=== PATIENT | male | born 1995 | race Caucasian/White ===

== ENCOUNTER 2017-11-05 14:34 | Emergency (ER) | payer OTHER ==
[2017-11-05 18:15] VITALS: BP 141/67
[2017-11-05] MEDS ORDERED: DEXAMETHASONE 10 MG/ML VIAL PO STA (18:27)
--- NOTE | 2017-11-05 18:29 | ED Physician Documentation ---
History of Present Illness - Stated complaint Stated Complaint: UNEASY FEELING/RT ARM TINGLING - Chief complaint Chief Complaint: General - Additonal information Additional information: hx from pt 22 male AD slept in R arm awoke with patchy tingling to FA and fingers elbow down and a sore area to distal bicep sx worse today after working out no weakness no other sx he is worried about a serious problem like a stroke Review of Systems Constitutional: denies: Fever Musculoskeletal: denies: Neck pain Neurologic: reports: Numbness. denies: Focal weakness, Head injury Endocrine: denies: Easy bruising / bleeding Immunocompromised: denies: Immunocompromised PD PAST MEDICAL HISTORY - Past Medical History Past Medical History: No - Past Surgical History Past Surgical History: No - Present Medications Home Medications: Ambulatory Orders Medication Instructions Recorded Confirmed predniSONE [Deltasone] 40 mg PO DAILY 3 Days tablet 11/05/17 - Allergies Allergies/Adverse Reactions: Allergies Allergy/AdvReac Type Severity Reaction Status Date / Time No Known Drug Allergies Allergy Verified 11/05/17 14:53 - Social History Does the pt smoke?: Yes Smoking Status: Current every day smoker Does the pt drink ETOH?: Yes ETOH Use: Beer Does the pt have substance abuse?: No - Immunizations Immunizations are current?: Yes - POLST Patient has POLST: No PD ED PE NORMAL - Vitals Vital signs reviewed: Yes - HEENT HEENT: Atraumatic, PERRL - Neck Neck: Supple, no meningeal sign - Cardiac Cardiac: RRR - Respiratory Respiratory: No respiratory distress, Clear bilaterally - Neuro Neuro: Alert and oriented X 3, frame and scrap crusher 2-12 intact, No motor deficit, No sensory deficit, Normal speech, Other (NIHSS zero - pt rn compliance finger ABD thumbs up OK wrist ext flexion bicep tricep shoulder ABD all nl, nl sensation radial median ulnar distribution, stong pulses and brisk cap refill, he reports patchy tingleing to FA in non dermatomal pattern and to all fingertips) Results - Vitals Vitals: Vital Signs - 24 hr 11/05/17 11/05/17 14:53 18:14 Temperature 36.9 C Heart Rate 98 94 Respiratory 18 14 Rate Blood Pressure 116/78 141/67 H O2 Saturation 98 98 Oxygen O2 Source Room air - Labs Labs: Laboratory Tests 11/05/17 17:06 POC Whole Bld Glucose 98 Departure - Departure Disposition: Home, Self Care Clinical Impression: Paresthesia of right upper extremity Condition: Good Instructions: ED Paraesthesias Follow-Up: RENATE Wood [Provider Group] Prescriptions: predniSONE [Deltasone] 40 mg PO DAILY 3 Days tablet Comments: It does not appear you have had a stroke. Your blood sugar was fine - you don't have diabetes The symptoms are most consistent with a peripheral nerve issue- perhaps due to sleeping on that arm. The steroids should decrease the nerve inflammation Please follow up at [facility] for a recheck Friday before the weekend unless completely better
[2017-11-05] MEDS ORDERED: CHERRY SYRUP 10 ML UDC PO ONE (18:47)
== END 2017-11-05 18:43 | disposition home or self-care (01) ==
LOC: ED 14:34
DX: R20.2 Paresthesia of skin (principal); F17.200 Nicotine dependence, unspecified, uncomplicated
CPT/HCPCS: 99283; A9270

== ENCOUNTER 2020-07-14 21:35 | Emergency (ER) | payer OTHER ==
--- NOTE | 2020-07-14 22:17 | ED Physician Documentation ---
PD HPI DYSPNEA - Stated complaint Stated Complaint: SOA - Chief complaint Chief Complaint: Resp - History obtained from History obtained from: Patient - History of Present Illness Timing - onset: How many hours ago (2) Timing - onset during: Rest Timing - details: Gradual onset, Constant Pain level max: 0 Pain level now: 0 Improved by: Rest Worsened by: Exertion Associated symptoms: Anxiety. No: Fever, Cough, Hemoptysis, Wheezing, Chest pain / discomfort, Palpitations, Diaphoresis, Bilateral edema, Unilateral edema Recently seen: Not recently seen - Additional information Additional information: c/o rapid onset dyspnea 2 hours ago while at home at rest. denies h/o similar symptoms. symptoms have been increasing and now he also has BUE/BLE numbness/tingling, lightheadedness, "feels like I'm going to pass out" (per patient). He says the symptoms initially felt anjel to previous anxiety he has experienced but he has never had his anxiety progress to these symptoms. Review of Systems Constitutional: reports: Reviewed and negative Cardiac: reports: Reviewed and negative Respiratory: reports: Dyspnea. denies: Cough, Hemoptysis, Wheezing GI: reports: Reviewed and negative Neurologic: reports: Generalized weakness, Numbness. denies: Focal weakness, Difficulty speaking, Confused, Altered mental status, Headache PD PAST MEDICAL HISTORY - Past Medical History Past Medical History: No - Past Surgical History Past Surgical History: No - Present Medications Home Medications: Ambulatory Orders Medication Instructions Recorded Confirmed predniSONE [Deltasone] 40 mg PO DAILY 3 Days tablet 11/05/17 LORazepam [Lorazepam] 0.5 - 1 mg PO BID PRN #14 tablet 07/15/20 - Allergies Allergies/Adverse Reactions: Allergies Allergy/AdvReac Type Severity Reaction Status Date / Time No Known Drug Allergies Allergy Verified 11/05/17 14:53 - Living Situation Living Arrangement: reports: At home - Social History Does the pt smoke?: Yes Smoking Status: Current every day smoker Does the pt drink ETOH?: Yes Does the pt have substance abuse?: No - Immunizations Immunizations are current?: Yes - POLST Patient has POLST: No PD ED PE NORMAL - Vitals Vital signs reviewed: Yes - General General: Alert and oriented X 3, Well developed/nourished, Other (tachypneic and noticably large Vt (deep inspirations and long expirations)) - HEENT HEENT: Moist mucous membranes - Neck Neck: No JVD - Cardiac Cardiac: No murmur - Respiratory Respiratory: No respiratory distress, Other (tachypneic, abnormal Vt (as implied by deep inspirations and rapid expirations)) - Abdomen Abdomen: Soft, Non tender - Extremities Extremities: No edema Results - Vitals Vitals: Vital Signs - 24 hr 07/14/20 07/15/20 21:41 00:48 Temperature 36.9 C Heart Rate 131 H 78 Respiratory 26 H 18 Rate Blood Pressure 155/95 H 133/78 H O2 Saturation 99 100 Oxygen O2 Source Room air - Labs Labs: Laboratory Tests 07/14/20 07/14/20 07/14/20 21:50 21:50 21:50 WBC 6.7 RBC 4.97 Hgb 15.4 Hct 42.6 MCV 85.7 MCH 31.0 MCHC 36.2 H RDW 11.3 L Plt Count 290 MPV 9.1 Neut # (Auto) 3.6 Lymph # (Auto) 2.4 [place] # (Auto) 0.6 Eos # (Auto) 0.0 Baso # (Auto) 0.0 Absolute Nucleated RBC 0.00 Nucleated RBC % 0.0 Sodium 135 Potassium 3.0 L Chloride 102 Carbon Dioxide 19 L Anion Gap 14.0 H BUN 5 L Creatinine 0.9 Estimated GFR (MDRD) 102 Glucose 129 H Calcium 8.7 TSH 1.76 - Rads (name of study) CT chest angio (PE study) Radiology: Prelim report reviewed, See rad report PD MEDICAL DECISION MAKING - ED course Complexity details: reviewed results, re-evaluated patient, considered differential, d/w patient ED course: on reevaluation after tests resulted and lorazepam IV given, patient is in NAD, normal vital signs and reports resolution of symptoms. Tests are unremarkable including CT chest angio Departure - Departure Disposition: 01 Home, Self Care Clinical Impression: Dyspnea Condition: Good Instructions: ED Hyperventilation Syndrome Prescriptions: LORazepam [Lorazepam] 0.5 - 1 mg PO BID PRN #14 tablet PRN Reason: Anxiety Discharge Date/Time: 07/15/20 00:48
[2020-07-14] MEDS ORDERED: LORazepam 2 MG/ML VIAL IVP STA (22:31)
[2020-07-14] MEDS ORDERED: IOVERSOL 320 100 ML VIAL IVP ONE (22:41)
[2020-07-14 22:42] LABS: BASOPHILS % (AUTO) 0.6 %; EOSINOPHILS % (AUTO) 0.3 %; HGB - HEMOGLOBIN 15.4 g/dL (14.0-18.0); LYMPHOCYTES # (AUTO) 2.4 10^3/uL (1.5-3.5); LYMPHOCYTES % (AUTO) 35.6 %; MEAN CORPUSCULAR HGB CONC 36.2 g/dL (32.0-36.0); MEAN CORPUSCULAR VOLUME 85.7 fL (80.0-94.0); MEAN PLATELET VOLUME 9.1 fL (7.4-11.4); MONOCYTES # (AUTO) 0.6 10^3/uL (0.0-1.0); NEUTROPHILS # (AUTO) 3.6 10^3/uL (1.5-6.6); NEUTROPHILS % (AUTO) 53.5 %; PLT - PLATELET COUNT 290 10^3/uL (130-450); RED BLOOD COUNT 4.97 10^6/uL (4.70-6.10); RED CELL DISTRIBUTION WIDTH 11.3 % (12.0-15.0); WHITE BLOOD COUNT 6.7 x10^3/uL (4.8-10.8)
[2020-07-14 22:47] LABS: CALCIUM 8.7 mg/dL (8.5-10.3); CREATININE 0.9 mg/dL (0.6-1.2)
[2020-07-15] MEDS ORDERED: IOVERSOL 320 100 ML VIAL IVP ONE (00:12)
[2020-07-15 00:48] VITALS: BP 133/78
--- NOTE | 2020-07-15 07:28 | CT Report ---
PROCEDURE: ANGIO CHEST W/WO INDICATIONS: Dyspnea CONTRAST: IV CONTRAST: Optiray 320 ml: 100 PO CONTRAST: *NO PO CONTRAST TECHNIQUE: After the administration of intravenous contrast, 2 mm thick sections acquired from the pulmonary api avni to the posterior costophrenic angles. 3-dimensional maximum intensity projection (MIP) coronal a nd sagittal reformats were then acquired through the thorax. For radiation dose reduction, the follow ing was used: automated exposure control, adjustment of mA and/or kV according to patient size. COMPARISON: None FINDINGS: Image quality: Excellent. Pulmonary arteries: Pulmonary arteries are normal in size, and demonstrate no intraluminal filling d efects to suggest central pulmonary embolism. Lungs and pleura: Lungs are clear. No pleural effusions or pneumothorax. Central and peripheral ai rways are patent. Mediastinum: Heart size is normal, without pericardial effusion. No mediastinal or hilar adenopathy . Thoracic aorta is normal in caliber and enhancement. Esophagus is normal in caliber, without hiat al hernia. Bones and chest wall: No suspicious bony lesions. Ribs and thoracic spine appear intact throughout. The thyroid is normal. No axillary or supraclavicular adenopathy. Abdomen: Visualized upper abdominal solid organs appear normal in the early arterial phase of enhanc ement. IMPRESSION: No pulmonary embolism demonstrated. No acute finding in the chest otherwise. No significant change fr om preliminary report. Reviewed by: Chemo Rao MD on 07/15/2020 7:27 AM PDT Approved by: Chemo Rao MD on 07/15/2020 7:27 AM PDT Station ID: [id number]
== END 2020-07-15 00:48 | disposition home or self-care (01) ==
LOC: ED 21:35
DX: R06.02 Shortness of breath (principal); R94.31 Abnormal electrocardiogram [ECG] [EKG]; F41.9 Anxiety disorder, unspecified; R53.1 Weakness; R20.0 Anesthesia of skin; F17.200 Nicotine dependence, unspecified, uncomplicated
CPT/HCPCS: 36415; 71275; 80048; 84443; 85025; 93005; 96374; 99284; J2060; Q9967